=== PATIENT | male | born 1995 | race Native Hawaiian/Other Pacific Islander ===

== ENCOUNTER 2016-11-19 16:18 | Emergency (ER) | payer BC, OTHER ==
[~2016-11-19] VITALS: Ht 167.6 cm; Wt 72.6 kg
[2016-11-19] MEDS ORDERED: MORPHINE SULFATE 4 MG/ML SYRG IV ONE (17:15)
[2016-11-19] MEDS ORDERED: ONDANSETRON HCL 4 MG/2 ML VIAL IV ONE (17:15)
[2016-11-19 17:30] LABS: Basophils # (auto) 0 uL; Eosinophils # (auto) 0 uL; Eosinophils % (auto) 0.1 % (0.0-7.0); Hematocrit 48.9 % (41.0-53.0); Hemoglobin 16.5 g/dL (13.5-17.5); Lymphocytes % (auto) 5.7 % (10.0-50.0); Mean Corpuscular Hemoglobin 28.6 pg (28.0-32.0); Mean Corpuscular Hgb Conc. 33.7 g/dL (32.0-36.0); Mean Corpuscular Volume 84.9 fL (80.0-100.0); Mean Platelet Volume 7.1 fL (7.4-10.4); Monocytes % (auto) 5.4 % (0.0-12.0); Neutrophils # (auto) 15.7 uL; Neutrophils % (auto) 88.8 % (37.0-80.0); Platelet Count (auto) 338 10^3/uL (140-450); Red Cell Distribution Width 13.4 % (11.6-16.0); White Blood Cell 17.7 10^3/uL (4.4-10.8)
[2016-11-19 17:51] LABS: INR 1.05 (0.9-1.15); Partial Thromboplastin Time 23.2 sec (22.64-33.71); Prothrombin Time 11.3 sec (9.37-12.3)
[2016-11-19 18:04] LABS: Albumin 4.4 g/dL (3.4-5.0); BUN/Creatinine Ratio 14.8; Bilirubin, Total 0.8 mg/dL (0.2-1.0); Calcium 8.9 mg/dL (8.5-10.1); Potassium 3.3 mmol/L (3.5-5.1); Total Protein 7.9 g/dL (6.4-8.2)
[2016-11-19 19:04] VITALS: BP 130/77
== END 2016-11-19 19:15 | disposition short-term general hospital (02) ==
LOC: ER 16:25
DX: S02.19XA Other fracture of base of skull, initial encounter for closed fracture (principal); S02.0XXA Fracture of vault of skull, initial encounter for closed fracture; S06.5X0A Traumatic subdural hemorrhage without loss of consciousness, initial encounter; V00.131A Fall from skateboard, initial encounter; Y93.51 Activity, roller skating (inline) and skateboarding; Y99.8 Other external cause status; Y92.89 Other specified places as the place of occurrence of the external cause
CPT/HCPCS: 36415; 70450; 80053; 85025; 85610; 85730; 94761

== ENCOUNTER → 2016-12-01 | Outpatient (CLI) | payer OTHER | END | disposition home or self-care (01) | LOC: LAB 10:12 | PROVIDERS: ATTEND Physician Assistant | DX: Z20.9 Contact with and (suspected) exposure to unspecified communicable disease (principal) | CPT/HCPCS: 36415; 86706 ==

== ENCOUNTER → 2017-01-03 | Outpatient (CLI) | payer OTHER | END | disposition home or self-care (01) | LOC: LAB 09:25 | PROVIDERS: ATTEND Surgery | DX: Z20.9 Contact with and (suspected) exposure to unspecified communicable disease (principal) | CPT/HCPCS: 86735; 86762; 86765; 86787 ==

== ENCOUNTER → 2017-12-21 | Outpatient (CLI) | payer OTHER | END | disposition home or self-care (01) | LOC: LAB 09:40 | PROVIDERS: ATTEND Registered Nurse General Practice | DX: Z20.9 Contact with and (suspected) exposure to unspecified communicable disease (principal) | CPT/HCPCS: 36415; 86706 ==